=== PATIENT | male | born 1990 | race Two or more races ===

== ENCOUNTER 2024-05-10 09:50 | Emergency (ER) | payer MEDICAID, OTHER ==
[~2024-05-10] VITALS: Ht 190.5 cm; Wt 104.5 kg
[2024-05-10 09:57] VITALS: BP 113/65; PULSE 78; RESP 14; TEMP 97.8; O2SAT 98
[2024-05-10] MEDS: TERBINAFINE HCL 1% 30 GM CREAM TP ONE (10:54)
== END 2024-05-10 11:20 | disposition home or self-care (01) ==
LOC: EMS 09:50
DX: B35.6 Tinea cruris (principal)
CPT/HCPCS: 99282; Z7502; Z7610